=== PATIENT | male | born 1985 | race African-American/Black ===

== ENCOUNTER 2018-10-31 21:22 | Emergency (ER) | payer OTHER ==
[~2018-10-31] VITALS: Ht 185.4 cm; Wt 118.2 kg
[2018-10-31 21:54] VITALS: Ht 185.4 cm; Wt 118.2 kg
[2018-10-31] MEDS ORDERED: LIPITOR40 MG PO (21:56)
[2018-10-31] MEDS ORDERED: LISINOPRIL10 MG PO (21:56)
[2018-10-31] MEDS ORDERED: MOBIC7.5 MG PO (21:56)
[2018-10-31 22:17] LABS: BASOPHILS 0.4 % (0-2); EOSINOPHILS 7.1 % (0-7); HEMATOCRIT 42.7 % (42.0-54.0); HEMOGLOBIN 15.1 g/dL (13.5-17.5); LYMPHOCYTES 29.1 % (15-50); MCH 31.4 pg (26.0-34.0); MCHC 35.4 g/dL (31.0-37.0); MCV 88.8 fL (80.0-100.0); MEAN PLATELET VOLUME 9.7 fL (7.4-10.4); NEUTROPHILS 55.4 % (40-80); PLATELET COUNT 239 10x3/uL (130-400); RBC 4.81 10x6/uL (4.20-6.10); RDW 12.2 % (11.5-14.5); WBC 5.2 10x3/uL (4.8-10.8)
[2018-10-31 22:29] LABS: ALBUMIN 3.9 g/dL (3.4-5.0); ALKALINE PHOSPHATASE 94 U/L (46-116); ALT (SGPT) 41 U/L (10-68); BILIRUBIN - TOTAL 0.56 mg/dL (0.2-1.3); CALC OSMOLALITY 282 mosm/kg (275-300); CALCIUM 8.7 mg/dL (8.5-10.1); CARBON DIOXIDE 24.4 mmol/L (21.0-32.0); CHLORIDE - SERUM 107 mmol/L (98-107); CREATININE - SERUM 1.2 mg/dL (0.6-1.3); GLUCOSE 107 mg/dL (74-106); PROTEIN - SERUM 7.4 g/dL (6.4-8.2); SODIUM 141 mmol/L (136-145); UREA NITROGEN 19 mg/dL (7-18); eGFR NON AFRICAN AMERICAN 74 mL/min (90-120)
[2018-10-31 22:33] LABS: AMYLASE - SERUM 87 U/L (25-115); LIPASE 214 U/L (73-393)
[2018-10-31 22:34] LABS: TROPONIN-I < 0.017 ng/mL (0.000-0.060)
[2018-11-01] MEDS ORDERED: OMEPRAZOLE20 M1 PO (00:02)
[2018-11-01] MEDS ORDERED: COLACE100 MG PO (00:02)
[2018-11-01 00:13] VITALS: BP 128/72
== END 2018-11-01 00:13 | disposition home or self-care (01) ==
LOC: D.ER 21:22
PROVIDERS: Family Medicine
DX: R10.13 Epigastric pain (principal)

== ENCOUNTER 2019-07-31 15:09 | Emergency (ER) | payer OTHER ==
[~2019-07-31] VITALS: Ht 185.4 cm; Wt 113.6 kg
[~2019-07-31 15:09] MED LIST: COLACE100 MG PO; LIPITOR40 MG PO; LISINOPRIL10 MG PO; MOBIC7.5 MG PO; OMEPRAZOLE20 M1 PO
[2019-07-31 15:41] VITALS: Ht 185.4 cm; Wt 113.6 kg
[2019-07-31 17:14] LABS: APPEARANCE CLEAR (CLEAR); BILIRUBIN NEGATIVE (NEGATIVE); COLOR YELLOW (YELLOW); GLUCOSE NEGATIVE (NEGATIVE); KETONE SMALL mg/dL (NEGATIVE); NITRITE NEGATIVE (NEGATIVE); PROTEIN NEGATIVE (NEGATIVE); SPECIFIC GRAVITY 1.015 (1.005-1.020); UROBILINOGEN NORMAL (NORMAL)
[2019-07-31 17:57] LABS: BASOPHILS 0.4 % (0-2); HEMATOCRIT 44.5 % (42.0-54.0); HEMOGLOBIN 15.4 g/dL (13.5-17.5); IMMATURE GRANULOCYTES 0.3 % (0-5); LYMPHOCYTES 20.2 % (15-50); MCH 30.9 pg (26.0-34.0); MCHC 34.6 g/dL (31.0-37.0); MCV 89.4 fL (80.0-100.0); MEAN PLATELET VOLUME 9.9 fL (7.4-10.4); MONOCYTES 8.8 % (2-11); NEUTROPHILS 64.3 % (40-80); PLATELET COUNT 242 10x3/uL (130-400); RBC 4.98 10x6/uL (4.20-6.10); RDW 12.2 % (11.5-14.5); WBC 6.7 10x3/uL (4.8-10.8)
[2019-07-31 18:18] LABS: ANION GAP 12.4 mmol/L (8-16); CALCIUM 9.3 mg/dL (8.5-10.1); CARBON DIOXIDE 23.9 mmol/L (21.0-32.0); CREATININE - SERUM 1.2 mg/dL (0.6-1.3); POTASSIUM - SERUM 4.3 mmol/L (3.5-5.1)
[2019-07-31 18:20] LABS: ALBUMIN 4.2 g/dL (3.4-5.0); BILIRUBIN - TOTAL 0.49 mg/dL (0.2-1.3); PROTEIN - SERUM 7.8 g/dL (6.4-8.2)
[2019-07-31] MEDS ORDERED: ZOFRAN4 MG PO (18:30)
[2019-07-31 18:44] VITALS: BP 121/75
== END 2019-07-31 18:45 | disposition home or self-care (01) ==
LOC: D.ER 15:09
PROVIDERS: Family Medicine
DX: R10.84 Generalized abdominal pain (principal)

== ENCOUNTER 2020-05-14 15:02 | Emergency (ER) | payer OTHER ==
[~2020-05-14] VITALS: Ht 185.4 cm; Wt 118.2 kg
[~2020-05-14 15:02] MED LIST changes: +ZOFRAN4 MG PO
[2020-05-14 15:22] VITALS: BP 128/70; Ht 185.4 cm; Wt 118.2 kg
[2020-05-14 15:44] LABS: BILIRUBIN NEGATIVE (NEGATIVE); KETONE NEGATIVE (NEGATIVE); NITRITE NEGATIVE (NEGATIVE); UROBILINOGEN NORMAL mg/dL (< 2)
[2020-05-14 15:56] LABS: BASOPHILS 0.1 % (0-2); EOSINOPHILS 0.6 % (0-7); HEMATOCRIT 44.3 % (42.0-54.0); HEMOGLOBIN 15.4 g/dL (13.5-17.5); IMMATURE GRANULOCYTES 0.3 % (0-5); LYMPHOCYTES 15.9 % (15-50); MCH 30.8 pg (26.0-34.0); MCHC 34.8 g/dL (31.0-37.0); MCV 88.6 fL (80.0-100.0); MEAN PLATELET VOLUME 9.6 fL (7.4-10.4); MONOCYTES 3.7 % (2-11); NEUTROPHILS 79.4 % (40-80); PLATELET COUNT 241 10x3/uL (130-400); RDW 12.3 % (11.5-14.5); WBC 6.8 10x3/uL (4.8-10.8)
[2020-05-14 16:05] LABS: CALC OSMOLALITY 270 mosm/kg (275-300); CARBON DIOXIDE 25.9 mmol/L (21.0-32.0); CHLORIDE - SERUM 102 mmol/L (98-107); GLUCOSE 96 mg/dL (74-106); POTASSIUM - SERUM 4.1 mmol/L (3.5-5.1); SODIUM 135 mmol/L (136-145); UREA NITROGEN 15 mg/dL (7-18); eGFR NON AFRICAN AMERICAN > 90 mL/min (90-120)
[2020-05-14 16:11] LABS: ALBUMIN 4.1 g/dL (3.4-5.0); ALKALINE PHOSPHATASE 72 U/L (30-120); ALT (SGPT) 61 U/L (10-68); BILIRUBIN - TOTAL 0.86 mg/dL (0.2-1.3); PROTEIN - SERUM 7.6 g/dL (6.4-8.2)
== END 2020-05-14 18:40 | disposition home or self-care (01) ==
LOC: D.ER 15:02
PROVIDERS: Family Medicine
DX: R10.9 Unspecified abdominal pain (principal); I10 Essential (primary) hypertension